=== PATIENT | male | born 1995 | race African-American/Black ===

== ENCOUNTER 2023-06-23 13:55 | Emergency (ER) | payer SELFPAY ==
[~2023-06-23] VITALS: Ht 172.7 cm; Wt 65.9 kg
[2023-06-23 13:56] VITALS: BP 103/67; PULSE 65; RESP 16; O2SAT 100
[2023-06-23 15:46] LABS: Basophils # (auto) 0 10 ^3/uL (0-0.2); Basophils % (auto) 0.8 % (0.0-2.0); Eosinophils # (auto) 0 10 ^3/uL (0-0.8); Eosinophils % (auto) 0.8 % (0.0-7.0); Hematocrit 41.4 % (41.0-53.0); Hemoglobin 13.9 g/dL (13.5-17.5); Lymphocytes # (auto) 1.3 10 ^3/uL (0.4-5.4); Lymphocytes % (auto) 38.8 % (10.0-50.0); Mean Corpuscular Hemoglobin 33.3 pg (28.0-32.0); Mean Corpuscular Hgb Conc. 33.5 g/dL (32.0-36.0); Mean Corpuscular Volume 99.2 fL (80.0-100.0); Monocytes # (auto) 0.3 10 ^3/uL (0-1.3); Monocytes % (auto) 8.5 % (0.0-12.0); Neutrophils # (auto) 1.7 10 ^3/uL (1.6-8.6); Neutrophils % (auto) 51.1 % (37.0-80.0); Nucleated Red Blood Cells % 0.6 %; Red Blood Cells 4.17 10^6/uL (4.5-5.90); Red Cell Distribution Width 15.5 % (11.8-14.3); White Blood Cell 3.3 10^3/uL (4.4-10.8)
[2023-06-23 16:01] LABS: Alanine Aminotransferase 90 U/L (7-40); Albumin 3.3 g/dL (3.2-4.8); Alkaline Phosphatase 94 U/L (46-116); Anion Gap 6 (5-15); Aspartate Aminotransferase 375 U/L (13-40); BUN/Creatinine Ratio 15.9 (10.0-20.0); Bilirubin, Total 0.8 mg/dL (0.2-1.0); Blood Urea Nitrogen 14 mg/dL (9-23); Calcium 8.6 mg/dL (8.5-10.1); Carbon Dioxide 28 mmol/L (20-30); Chloride 104 mmol/L (98-107); Glucose 93 mg/dL (74-106); Potassium 4.6 mmol/L (3.5-5.1); Sodium 138 mmol/L (136-145); Total Protein 5.8 g/dL (5.7-8.2)
== END 2023-06-23 19:29 | disposition left against medical advice (07) ==
LOC: ER 13:55 → EDBD 13:55 → ER 19:29
DX: G93.89 Other specified disorders of brain (principal); D72.819 Decreased white blood cell count, unspecified; K76.0 Fatty (change of) liver, not elsewhere classified; R74.01 Elevation of levels of liver transaminase levels; R79.89 Other specified abnormal findings of blood chemistry
CPT/HCPCS: 36415; 70450; 71045; 74176; 80053; 84484; 85025; 85379

== ENCOUNTER 2023-07-27 18:31 | Emergency (ER) | payer SELFPAY ==
[~2023-07-27] VITALS: Ht 170.2 cm; Wt 70.1 kg
[2023-07-27 18:40] VITALS: BP 160/94; RESP 20; O2SAT 100
[2023-07-27 18:59] VITALS: PULSE 106
[2023-07-27] MEDS ORDERED: GABAPENTIN 300 MG CAP PO ONE (19:15)
== END 2023-07-27 21:03 | disposition left against medical advice (07) ==
LOC: ER 18:31
DX: M79.10 Myalgia, unspecified site (principal); R51.9 Headache, unspecified
CPT/HCPCS: 70450; 93005

== ENCOUNTER 2023-08-09 06:45 | Emergency (ER) | payer SELFPAY ==
[~2023-08-09] VITALS: Ht 172.7 cm; Wt 68.2 kg
[2023-08-09 06:56] VITALS: BP 148/87; PULSE 77; RESP 20; O2SAT 98
[2023-08-09] MEDS: MORPHINE SULFATE 4 MG/ML SYR/VIAL IV ONE (08:16)
[2023-08-09] MEDS: SODIUM CHLORIDE 0.9% 1,000 ML IVB ONE (08:17)
[2023-08-09] MEDS: SODIUM CHLORIDE 0.9% 1,000 ML IV ONE (08:17)
[2023-08-09] MEDS: ONDANSETRON HCL 4 MG/2 ML VIAL IV ONE (08:17)
== END 2023-08-09 07:53 | disposition left against medical advice (07) ==
LOC: ER 06:45
DX: K52.9 Noninfective gastroenteritis and colitis, unspecified (principal); F15.90 Other stimulant use, unspecified, uncomplicated

== ENCOUNTER 2023-11-18 15:08 | Emergency (ER) | payer MEDICAID ==
[~2023-11-18] VITALS: Ht 172.7 cm; Wt 71.9 kg
[2023-11-18] MEDS: cloNIDine HCL 0.1 MG TAB PO ONE ×2 (15:30→19:47)
[2023-11-18 16:23] LABS: Basophils # (auto) 0 10 ^3/uL (0-0.2); Basophils % (auto) 0.3 % (0.0-2.0); Eosinophils # (auto) 0 10 ^3/uL (0-0.8); Eosinophils % (auto) 0.4 % (0.0-7.0); Hematocrit 47.1 % (41.0-53.0); Hemoglobin 16.1 g/dL (13.5-17.5); Lymphocytes % (auto) 31.1 % (10.0-50.0); Mean Corpuscular Hemoglobin 32.7 pg (28.0-32.0); Mean Corpuscular Hgb Conc. 34.1 g/dL (32.0-36.0); Mean Corpuscular Volume 95.8 fL (80.0-100.0); Monocytes # (auto) 0.4 10 ^3/uL (0-1.3); Monocytes % (auto) 5.8 % (0.0-12.0); Neutrophils % (auto) 62.4 % (37.0-80.0); Nucleated Red Blood Cells % 0.4 %; Platelet Count (auto) 311 10^3/uL (140-450); Red Blood Cells 4.92 10^6/uL (4.5-5.90); White Blood Cell 6.4 10^3/uL (4.4-10.8)
[2023-11-18 16:30] LABS: Chloride 101 mmol/L (98-107); Potassium 4.1 mmol/L (3.5-5.1); Sodium 138 mmol/L (136-145)
[2023-11-18 16:31] LABS: Anion Gap 9 (5-15); Calcium 10.1 mg/dL (8.7-10.4); Carbon Dioxide 28 mmol/L (20-30)
[2023-11-18 16:36] LABS: BUN/Creatinine Ratio 15.4 (10.0-20.0); Blood Urea Nitrogen 14 mg/dL (9-23); Glucose 87 mg/dL (74-106)
[2023-11-18 17:20] VITALS: PULSE 78; RESP 16; TEMP 98.7; O2SAT 95
[2023-11-18] MEDS: ACETAMINOPHEN 500 MG TAB PO ONE (17:28)
[2023-11-18 18:28] LABS: Urine Bacteria None Seen /hpf (None Seen)
[2023-11-18 18:35] LABS: Urine Blood Negative /uL (Negative); Urine Clarity Clear (Clear); Urine Color Light-Yellow (Yellow); Urine Mucus FEW (None Seen); Urine Protein, UAD Negative (Negative); Urine Specific Gravity 1.024 (1.001-1.035); Urine Urobilinogen Normal (Negative); Urine WBC 2 /hpf (0 - 3)
[2023-11-18 19:30] VITALS: BP 149/103; PULSE 85; RESP 16; O2SAT 100
[2023-11-18 20:07] LABS: COVID19 ANTIGEN SOFIA FIA NEGATIVE (NEGATIVE); Rapid Influenza A Negative (Negative); Rapid Influenza B Negative (Negative)
[2023-11-18] MEDS ORDERED: LORA10CA PO (20:29)
[2023-11-18] MEDS ORDERED: CLON0.2T PO (20:29)
[2023-11-18] MEDS ORDERED: ACET500T58 PO (20:29)
== END 2023-11-18 22:12 | disposition home or self-care (01) ==
LOC: ER 15:08
DX: J39.8 Other specified diseases of upper respiratory tract (principal); I10 Essential (primary) hypertension; F15.90 Other stimulant use, unspecified, uncomplicated; Z20.822 Contact with and (suspected) exposure to COVID-19
CPT/HCPCS: 36415; 80048; 81001; 85025; 87426; 87804

== ENCOUNTER 2025-03-31 19:10 | Emergency (ER) | payer MEDICAID ==
[~2025-03-31] VITALS: Ht 172.7 cm; Wt 72.7 kg
[~2025-03-31 19:10] MED LIST: ACET500T58 PO; CLON0.2T PO; LORA10CA PO
--- NOTE | 2025-03-31 20:09 | ED.PDOC ---
GI ASSESSMENT HPI Comments 29 year old male presents to the ED with chief complaint of diffuse abdominal pain onset 1 week ago. Pt reports they were seen at a different hospital but was AMA after disagreement between treating providers over whether he should receive an elected appendectomy to relieve his symptoms. Pt complains of diffuse and severe abdominal pain, as well as a jolt of pain extending across the left side of his chest. Pt presents with acute agitation and aggressive behavior that began while speaking with the Provider after demanding for a Rx for a medication that [facility] could not dispense without proper labs or testing. The patient became verbally aggressive towards the provider, medical office asst, and onlooking nurse and was escorted out to the lobby by security. Chief Complaint: Abdominal Pain Time Seen by MD: 20:07 Primary Care Provider: NONE Reviewed Notes: Nurses Notes, Medications, Allergies Allergies: Coded Allergies: NO KNOWN ALLERGIES (Unverified , 06/23/23) Home Meds Active Scripts Ondansetron HCl (Ondansetron Hydrochloride) 8 Mg Tab, 8 MG PO Q6HP PRN, #30 TAB Prov:SILVANA ELIZONDO MD 04/01/25 Gabapentin (Once-Daily) (Gabapentin) 300 Mg Tab, 300 MG PO Q6HP PRN, #90 TAB 3 Refills Prov:SILVANA ELIZONDO MD 04/01/25 Loratadine (Claritin) 10 Mg Cap, 10 MG PO DAILY for 10 Days, #10 CAP Prov:FLETCHER TEJEDA PAC 11/18/23 Acetaminophen (Acetaminophen) 500 Mg Tab, 500 MG PO Q4HP PRN, #30 TAB Prov:FLETCHER TEJEDA PAC 11/18/23 Clonidine Hydrochloride (Clonidine Hcl) 0.2 Mg Tab, 1 TAB PO BIDP PRN, #20 TAB 0 Refills To be used if systolic pressures above 160 or diastolic pressures above 90. Prov:FLETCHER TEJEDA PAC 11/18/23 Information Source: Patient Mode of Arrival: EMS Timing: Days Duration: Since onset Prehospital treatment: None Quality: None Vomitus: None Recent: None Pain Location: Diffuse, None Modifying Factors: Nothing Associated sign and symptoms: Abdominal Pain Past Medical History PAST MEDICAL HISTORY: HTN Surgical History: Denies all surgeries Family History Family History: Reviewed,noncontributory to illness, No family hx of Cancer, No family hx of DM, No family hx of Heart [place], No family hx of HTN, No family hx ofKidney [place], No family hx of Liver [place], No family hx of Lung [place], No family hx of Stroke Social History Smoker: Non-Smoker Alcohol: Denies ETOH Use Drugs: Marijuana Lives In: Home Constitutional: denies: chills, diaphoresis, fatigue, fever, malaise, sweats, weakness, others EENTM: denies: blurred vision, double vision, ear bleeding, ear discharge, ear drainage, ear pain, ear ringing, eye pain, eye redness, hearing loss, mouth pain, mouth swelling, nasal discharge, nose bleeding, nose congestion, nose pain, photophobia, tearing, throat pain, throat swelling, voice changes, others Respiratory: denies: cough, hemoptysis, orthopnea, SOB at rest, shortness of breath, SOB with excertion, stridor, wheezing, others Cardiovascular: reports: chest pain; denies: dizzy spells, diaphoresis, Dyspnea on exertion, edema, irregular heart beat, left arm pain, lightheadedness, palpitations, PND, syncope, others Gastrointestinal: reports: abdominal pain; denies: abdomen distended, blood streaked bowels, constipated, diarrhea, dysphagia, difficulty swallowing, hematemesis, melena, nausea, poor appetite, poor fluid intake, rectal bleeding, rectal pain, vomiting, others Genitourinary: denies: burning, dysuria, flank pain, frequency, hematuria, incontinence, penile discharge, penile sore, pain, testicle pain, testicle swelling, urgency, others Neurological: denies: dizziness, fainting, headache, left sided numbness, left sided weakness, numbness, paresthesia, pre-existing deficit, right sided numbness, right sided weakness, seizure, speech problems, tingling, tremors, weakness, others Musculoskeletal: denies: back pain, gout, joint pain, joint swelling, muscle pain, muscle stiffness, neck pain, others Integumetry: denies: bruises, change in color, change in hair/nails, dryness, laceration, lesions, lumps, rash, wounds, others Allergic/Immunocompromised: denies: Difficulty Healing, Frequent Infections, Hives, Itching, others Hematologic/Lymphatic: denies: anemia, blood clots, easy bleeding, easy bruising, swollen glands, others Endocrine: denies: excessive hunger, excessive sweating, excessive thirst, excessive urination, flushing, intolerance to cold, intolerance to heat, unexplained weight gain, unexplained weight loss, others Psychiatric: denies: anxiety, bipolar disorder, depression, hopeless, panic disorder, schizophrenia, sleepless, suicidal, others All Other Systems: Reviewed and Negative Physical Exam General Appearance: No Apparent Distress, Normal HEENT: Normal ENT Inspection, Pharynx Normal, TMs Normal Neck: Full Range of Motion, Non-Tender, Normal, Normal Inspection Respiratory: Chest Non-Tender, Lungs Clear, No Accessory Muscle Use, No Respiratory Distress, Normal Breath Sounds Cardiovascular: No Edema, No JVD, No Murmur, No Gallop, Normal Peripheral Pulses, Regular Rate/Rhythm Breast Exam: Deferred Gastrointestinal: No Organomegaly, Non Tender, No Pulsatile Mass, Normal Bowel Sounds, Soft Genitalia: Deferred Pelvic: Deferred Rectal: Deferred Extremities: No calf tenderness, Normal capillary refill, Normal inspection, Normal range of motion, Non-tender, No pedal edema Musculoskeletal : Apperance: Normal Neurologic: Alert, biomedical repair technician II-XII nml as Tested, No Motor Deficits, Normal Affect, Normal Mood, No Sensory Deficits Cerebellar Function: Normal Reflexes: Normal Skin: Dry, Normal Color, Warm Lymphatic: No Adenopathy Was a procedure done? Was a procedure done?: No GI differential Dx Differential Diagnosis: Appendicitis X-Ray, Labs, Meds, VS Vital Signs Date Time Temp Pulse Resp B/P (MAP) Pulse Ox O2 Delivery O2 Flow Rate FiO2 04/01/25 01:34 78 16 128/84 04/01/25 01:31 98.1 78 16 128/68 (88) 98 98.1 03/31/25 22:07 97 Room Air* 0 21 03/31/25 22:00 76 19 122/85 03/31/25 21:52 98.5 75 16 122/85 (97) 98 98.5 03/31/25 19:22 98.9 88 14 138/90 100 98.9 Lab Test 03/31/25 20:51 03/31/25 20:23 Range/Units White Blood Count 3.5 L 4.4-10.8 10^3/uL Red Blood Count 3.98 L 4.5-5.90 10^6/uL Hemoglobin 12.5 L 13.5-17.5 g/dL Hematocrit 36.8 L 41.0-53.0 % Mean Corpuscular Volume 92.4 80.0-100.0 fL Mean Corpuscular Hemoglobin 31.3 28.0-32.0 pg Mean Corpuscular Hemoglobin Concent 33.9 32.0-36.0 g/dL Red Cell Distribution Width 16.4 H 11.8-14.3 % Platelet Count 314 140-450 10^3/uL Mean Platelet Volume 7.5 6.9-10.8 fL Neutrophils (%) (Auto) 37.0-80.0 % Lymphocytes (%) (Auto) 10.0-50.0 % Monocytes (%) (Auto) 0.0-12.0 % Basophils (%) (Auto) 0.0-2.0 % Neutrophils # (Auto) 1.6-8.6 10 ^3/uL Lymphocytes # (Auto) 0.4-5.4 10 ^3/uL Monocytes # (Auto) 0-1.3 10 ^3/uL Differential Total Cells Counted 100.0 100 Neutrophils % (Manual) 25 L 37.0-80.0 Band Neutrophils % (Manual) 0 Lymphocytes % (Manual) 65 H 10.0-50.0 Monocytes % (Manual) 10 0-12 Eosinophils % (Manual) 0 0-7 Basophils % (Manual) 0 0.0-2.0 Metamyelocytes % (manual) 0 Myelocytes % (Manual) 0 Promyelocytes % (Manual) 0 Blast Cells % (Manual) 0 Reactive Lymphocytes 0 Platelet Estimate Adequate Anisocytosis (manual) Slight Sodium Level 146 H 136-145 mmol/L Potassium Level 3.6 3.5-5.1 mmol/L Chloride Level 108 H 98-107 mmol/L Carbon Dioxide Level 29 20-31 mmol/L Anion Gap 9 5-15 Blood Urea Nitrogen 9 9-23 mg/dL Creatinine 0.81 0.700-1.30 mg/dL Glomerular Filtration Rate Calc 122 >90 mL/min BUN/Creatinine Ratio 11.1 10.0-20.0 Serum Glucose 104 74-106 mg/dL Calcium Level 9.1 8.7-10.4 mg/dL Total Bilirubin 0.5 0.2-1.0 mg/dL Aspartate Amino Transferase (AST) 21 13-40 U/L Alanine Aminotransferase (ALT) 13 7-40 U/L Alkaline Phosphatase 64 46-116 U/L Total Protein 7.0 5.7-8.2 g/dL Albumin 4.3 3.2-4.8 g/dL Lipase 46 12-53 U/L Urine Color Yellow Yellow Urine Clarity Clear Clear Urine pH 6.5 5.0-9.0 Urine Specific [place] 1.026 1.001-1.035 Urine Protein Trace H Negative Urine Ketones 1+ H Negative Urine Blood Negative Negative /uL Urine Nitrite Negative Negative Urine Bilirubin Negative Negative Urine Urobilinogen 2 H Negative mg/dL Urine Leukocyte Esterase Trace Negative /uL Urine RBC 2 0 - 3 /hpf Urine Microscopic WBC 3 0-3 /HPF Urine Squamous Epithelial Cells None seen <5 /hpf Urine Bacteria None seen None Seen /hpf Urine Hyaline Casts Few 0 - 2 /lpf Urine Mucus Few None Seen Urine Glucose Normal Normal mg/dL Current Medications Medications (Trade) Dose Ordered Sig/Lyndsay Route Start Time Stop Time Status Last Admin Ondansetron HCl (Zofran) 4 mg ONCE ONCE IV 03/31/25 20:45 03/31/25 20:46 DC 03/31/25 21:59 Hydromorphone HCl (Dilaudid Injection) 1 mg ONCE ONCE IV 03/31/25 20:45 03/31/25 20:46 DC 03/31/25 22:00 Sodium Chloride 1,000 ml @ 1,000 mls/hr Q1H ONCE IVB 03/31/25 20:45 03/31/25 21:44 DC 03/31/25 21:59 X-Ray, Labs, Meds, VS Comment [place] [id number] Ph: [phone] DIAGNOSTIC IMAGING Diagnostic Imaging Report : [id number] Signed PATIENT: ALISON FUNK ACCT: [id number] UNIT: [id number] : 1995 LOC: ER ROOM / BED: / AGE / SEX: 29 / M ADM STATUS: REG ER SERVICE 36 ORDERING PHYSICIAN: SILVANA ELIZONDO MD PROCEDURE(s): ABPLIV - CT AB PEL WITH IV CON ONLY REASON: RLQ pain ORDER NUMBER(s): [id number], ACCESSION NUMBER(s): [id number] EXAM: CT CT AB PEL WITH IV CON ONLY History: RLQ pain COMPARISON: CT ABD/PEL W - IV on DOS: 07/01/24, CT ABD/PEL W - IV on DOS: 04/02/24, CT ABD/PEL W - IV on DOS: 03/01/24, CT CT AB PEL WO CON-NO ORAL OR IV on DOS: 06/23/23 TECHNIQUE: Multidetector spiral CT of the abdomen and pelvis was performed from lung bases to pubic symphysis. Intravenous contrast was administered during this examination. Portal venous imaging was obtained. Axial, coronal and sagittal multiplanar reformats were performed by the technologist on a separate worksta tion. Radiation Dose : 1. Abdomen/Pelvis: CTDIvol 12.61mGy, DLP 748.28 mGy*cm. CONTRAST: Type of contrast: Omnipaque 300 Contrast injected: 100 ml FINDINGS: Lung Bases: No acute or significant lung base finding. Normal heart size. No pleural or pericardial effusion. Liver: The liver is normal in size. No focal lesions. Normal hepatic vascular enhancement. Gallbladder and Biliary Tree: Unremarkable Spleen: Unremarkable Pancreas: The pancreas is normal in appearance without focal lesions or abnormal enhancement. Adrenal Glands: Unremarkable Kidneys: No hydronephrosis. Bladder: Unremarkable Bowel: The stomach is grossly normal in appearance. Small bowel and colon are normal in caliber and distribution. Normal appendix is visualized in the right lower quadrant without findings of appendicitis. Ascites: Absent Lymphadenopathy: No mesenteric, retroperitoneal or periportal lymphadenopathy. Abdominal Wall and Mesentery: Unremarkable. Vasculature: The visualized abdominal aorta is normal in size and caliber. Abdominal and pelvic vessels demonstrate normal enhancement. Pelvic Organs: Unremarkable Musculoskeletal: No aggressive focal bony lesions, acute fractures or dislocation. IMPRESSION: No acute abdominal or pelvic finding. Radiation optimization: All CT scans at this facility use at least one of these dose optimization techniques: automated exposure control mA and/or kV adjustment per patient size (includes targeted exams where dose is matched to clinical indication) or iterative reconstruction. ATED BY: ZAYRA WALTON MD DICTATED DATE/TIME: 03/31/25 3336 SIGNED BY: ZAYRA WALTON MD SIGNED DATE/TIME: 03/31/25 9125 CC: Time of 1ST Reevaluation: 20:37 Reevaluation 1ST: Unchanged Patient Education/Counseling: Diagnosis, Treatment, Need For Follow Up Family Education/Counseling: No Family Present SEPSIS Sepsis Screen Date sepsis recognized/suspect: Mar 31, 2025 Time Sepsis recognized/suspect: 1915 Recent Procedure: No On Antibiotic Therapy: No Respiratory Rate >20: No Heart Rate >90: No Temp<36 C (96.8 F) or >38.3 C: No SBP <90 or MAP <65 mmHG: No New Acute Mental Status Change: No Is the patient on CPAP, BIPAP,: No Physician Orders Ct Ab Pel With Iv Con Only (03/31/25 20:37) Vital Signs Date Time Temp Pulse Resp B/P (MAP) Pulse Ox O2 Delivery O2 Flow Rate FiO2 04/01/25 01:34 78 16 128/84 04/01/25 01:31 98.1 78 16 128/68 (88) 98 98.1 03/31/25 22:07 97 Room Air* 0 21 03/31/25 22:00 76 19 122/85 03/31/25 21:52 98.5 75 16 122/85 (97) 98 98.5 03/31/25 19:22 98.9 88 14 138/90 100 98.9 Laboratory Tests Test 03/31/25 20:51 White Blood Count 3.5 10^3/uL (4.4-10.8) L Departure 1 Departure Time of Disposition: 22:00 Impression: Primary Impression: Abdominal pain Disposition: HOME / SELF CARE / HOMELESS Condition: Stable e-Prescriptions Ondansetron HCl (Ondansetron Hydrochloride) 8 Mg Tab 8 MG PO Q6HP PRN, #30 TAB Prov: SILVANA ELIZONDO MD 04/01/25 Gabapentin (Once-Daily) (Gabapentin) 300 Mg Tab 300 MG PO Q6HP PRN, #90 TAB 3 Refills Prov: SILVANA ELIZONDO MD 04/01/25 Discharged With: Self Critical Care Note Critical Care Time?: No Stability Stability form required: No Heart Score Heart Score: Heart Score Response (Comments) Value History N/A 0 EKG N/A 0 Age N/A 0 Risk Factors N/A 0 Troponin N/A 0 Total 0 I personally scribed for SILVANA ELIZONDO MD ([email or web address]) on 03/31/25 at 20:09. Electronically submitted by Patience Patel ([email or web address]). I personally scribed for SILVANA ELIZONDO MD ([email or web address]) on 04/01/25 at 00:51. Electronically submitted by Patience Patel ([email or web address]). SILVANA ELIZONDO MD Mar 31, 2025 20:09
[2025-03-31 21:04] LABS: Hematocrit 36.8 % (41.0-53.0); Hemoglobin 12.5 g/dL (13.5-17.5); Mean Corpuscular Hemoglobin 31.3 pg (28.0-32.0); Mean Corpuscular Volume 92.4 fL (80.0-100.0)
[2025-03-31] MEDS: IOHEXOL 300 MG/ML 100ML BOTTLE IJ ONE (21:18)
[2025-03-31 21:24] LABS: Alanine Aminotransferase 13 U/L (7-40); Albumin 4.3 g/dL (3.2-4.8); Alkaline Phosphatase 64 U/L (46-116); Anion Gap 9 (5-15); BUN/Creatinine Ratio 11.1 (10.0-20.0); Calcium 9.1 mg/dL (8.7-10.4); Carbon Dioxide 29 mmol/L (20-31); Glucose 104 mg/dL (74-106); Lipase 46 U/L (12-53); Potassium 3.6 mmol/L (3.5-5.1); Total Protein 7.0 g/dL (5.7-8.2)
[2025-03-31 21:25] LABS: Bilirubin, Total 0.5 mg/dL (0.2-1.0)
[2025-03-31 21:31] LABS: Total Cells Counted 100.0 (100)
[2025-03-31 21:32] LABS: Anisocytosis Slight
[2025-03-31 21:38] LABS: Blood Urea Nitrogen 9 mg/dL (9-23); Chloride 108 mmol/L (98-107); Sodium 146 mmol/L (136-145)
[2025-03-31] MEDS: ONDANSETRON HCL 4 MG/2 ML VIAL IV ONE (21:59)
[2025-03-31] MEDS: SODIUM CHLORIDE 0.9% 1,000 ML IVB ONE (21:59)
[2025-03-31] MEDS: HYDROmorphone HCL 2 MG/ML VL/or syr IV ONE (22:00)
[2025-03-31 22:07] VITALS: O2SAT 97
[2025-03-31 23:11] LABS: Urine Protein, UAD TRACE (Negative)
--- NOTE | 2025-04-01 00:02 | DVH ---
EXAM: CT CT AB PEL WITH IV CON ONLY History: RLQ pain COMPARISON: CT ABD/PEL W - IV on DOS: 07/01/24, CT ABD/PEL W - IV on DOS: 04/02/24, CT ABD/PEL W - IV on DOS: 03/01/24, CT CT AB PEL WO CON-NO ORAL OR IV on DOS: 06/23/23 TECHNIQUE: Multidetector spiral CT of the abdomen and pelvis was performed from lung bases to pubic symphysis. Intravenous contrast was administered during this examination. Portal venous imaging was obtained. Axial, coronal and sagittal multiplanar reformats were performed by the technologist on a separate workstation. Radiation Dose : 1. Abdomen/Pelvis: CTDIvol 12.61mGy, DLP 748.28 mGy*cm. CONTRAST: Type of contrast: Omnipaque 300 Contrast injected: 100 ml FINDINGS: Lung Bases: No acute or significant lung base finding. Normal heart size. No pleural or pericardial effusion. Liver: The liver is normal in size. No focal lesions. Normal hepatic vascular enhancement. Gallbladder and Biliary Tree: Unremarkable Spleen: Unremarkable Pancreas: The pancreas is normal in appearance without focal lesions or abnormal enhancement. Adrenal Glands: Unremarkable Kidneys: No hydronephrosis. Bladder: Unremarkable Bowel: The stomach is grossly normal in appearance. Small bowel and colon are normal in caliber and distribution. Normal appendix is visualized in the right lower quadrant without findings of appendicitis. Ascites: Absent Lymphadenopathy: No mesenteric, retroperitoneal or periportal lymphadenopathy. Abdominal Wall and Mesentery: Unremarkable. Vasculature: The visualized abdominal aorta is normal in size and caliber. Abdominal and pelvic vessels demonstrate normal enhancement. Pelvic Organs: Unremarkable Musculoskeletal: No aggressive focal bony lesions, acute fractures or dislocation. IMPRESSION: No acute abdominal or pelvic finding. Radiation optimization: All CT scans at this facility use at least one of these dose optimization techniques: automated exposure control mA and/or kV adjustment per patient size (includes targeted exams where dose is matched to clinical indication) or iterative reconstruction.
[2025-04-01] MEDS ORDERED: ONDA-180 PO (00:47)
[2025-04-01] MEDS ORDERED: GABA300T4 PO (00:47)
[2025-04-01 01:31] VITALS: TEMP 98.1; O2SAT 98
[2025-04-01 01:34] VITALS: BP 128/84; PULSE 78; RESP 16
[2025-04-01] MEDS ORDERED: LORazepam 0.5 MG TAB ONE (08:17)
[2025-04-02] MEDS ORDERED: OLAN20TA PO (19:42)
== END 2025-04-01 01:32 | disposition home or self-care (01) ==
LOC: EDBD 19:10 → ER 19:10
DX: R10.84 Generalized abdominal pain (principal); I10 Essential (primary) hypertension
CPT/HCPCS: 36415; 74177; 80053; 81001; 83690; 85007; 85027; 96361; 96374; 96375; 99285; J1171; J2405; J7030; Q9967